=== PATIENT | female | born 1975 | race Caucasian/White ===

== ENCOUNTER 2018-04-15 17:33 | Emergency (ER) | payer SELFPAY ==
[2018-04-15] MEDS ORDERED: GARL1TAB9 PO (17:42)
[2018-04-15] MEDS ORDERED: IBUP-1671 PO (17:42)
--- NOTE | 2018-04-15 17:42 | ER Report ---
History and Physical Time Seen By MD: 17:43 Hx. of Stated Complaint: PT REPORTS HITTING RIGHT LEG WITH SLUDGE HAMMER 1 WEEK AGO, HERE TONIGHT D/T STILL HAVING PAIN/BRUSING. PT HAS HISTORY OF BLOOD CLOTS. HPI/ROS CHIEF COMPLAINT: Pain to right lower extremity HISTORY OF PRESENT ILLNESS: 42-year-old female patient presents to emergency room with complaint of pain to the right lower extremity. 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 She states that she was using a sledgehammer to break ice off the trailer. She states that the sledgehammer slipped out of her hand and hit her in the leg. She states that since then she's been having pain there. She states able to walk, but has noticed some redness and swelling to the medial aspect of the proximal lower leg. Patient states she is not taking any medicine for this. She denies any fevers or chills. She states that she does have a history of blood clots was worried about a possible DVT. She states that a few days after that she was turning her head to talk to a lift mechanic issues getting her truck. She states that she slipped off and fell backwards. She states when she did that she felt a twisting and popping in the ankle. She states she's been able to walk, but states she has had bruising and pain with that since then. REVIEW OF SYSTEMS: Respiratory: No cough, no dyspnea. Cardiovascular: No chest pain, no palpitations. Gastrointestinal: No vomiting, no abdominal pain. Musculoskeletal: As noted above Allergies: Coded Allergies: No Known Drug Allergies (Unverified , 04/15/18) Home Meds Active Scripts Cephalexin 500 Mg Tab (KEFLEX 500 MG TAB) 500 Mg Tablet, 500 MG PO Q6H, #28 TAB Prov:ANGUS ERVIN [employer] 04/15/18 Reported Medications Garlic (GARLIC) 1 Each Tablet, 1 EACH PO DAILY 04/15/18 Ibuprofen (MOTRIN IB) 200 Mg Tablet, 1-2 TAB PO Q4-6H PRN for PAIN 04/15/18 Past Medical/Surgical History Patient has a past medical history of migraines, irregular heartbeat, DVT, asthma, pneumonia, PCO S, fractures. Patient has surgical history of left knee surgery, right jaw surgery. Reviewed Nurses Notes: Yes Constitutional Vital Sign - Last 24 Hours 04/15/18 04/15/18 04/15/18 04/15/18 17:37 17:45 18:00 18:15 Temp 98.1 Pulse 94 87 89 83 Resp 16 B/P (MAP) 163/120 Pulse Ox 95 97 95 96 O2 Delivery Room Air 04/15/18 04/15/18 04/15/18 18:30 18:45 20:33 Pulse 81 85 Resp 15 16 B/P (MAP) 155/118 (130) 158/95 (116) Pulse Ox 95 96 O2 Delivery Room Air Room Air Physical Exam General Appearance: The patient is alert, has no immediate need for airway protection and no current signs of toxicity. Respiratory: Chest is non tender, lungs are clear to auscultation. Cardiac: regular rate and rhythm Gastrointestinal: Abdomen is soft and non tender, no masses, bowel sounds normal. Musculoskeletal: Neck: Neck is supple and non tender. Extremities have full range of motion and are non tender. Patient does have some redness, erythema noted to the right lower extremity, is slightly tender to touch. Patient does have bruising to the right ankle. She has no pain to palpation, she is able to dorsiflex and plantarflex was without any problems. She does have worsening pain with pronation. Skin: No rashes or lesions. DIFFERENTIAL DIAGNOSIS: After history and physical exam differential diagnosis was considered for fracture, contusion, cellulitis, DVT. Medical Decision Making Data Points Result Diagram: 04/15/18 1812 04/15/18 1812 Laboratory Hematology Test 04/15/18 18:12 Red Blood Count 5.49 M/uL (4.17-5.56) Mean Corpuscular Volume 84.6 fL (80.0-96.0) Mean Corpuscular Hemoglobin 28.1 pg (26.0-33.0) Mean Corpuscular Hemoglobin Concent 33.2 g/dL (32.0-36.0) Red Cell Distribution Width 14.1 % (11.5-14.5) Mean Platelet Volume 8.5 fL (7.2-11.1) Neutrophils (%) (Auto) 57.8 % (39.4-72.5) Lymphocytes (%) (Auto) 34.1 % (17.6-49.6) Monocytes (%) (Auto) 6.8 % (4.1-12.4) Eosinophils (%) (Auto) 0.9 % (0.4-6.7) Basophils (%) (Auto) 0.4 % (0.3-1.4) Nucleated RBC Relative Count (auto) 0.2 /100WBC Neutrophils # (Auto) 4.2 K/uL (2.0-7.4) Lymphocytes # (Auto) 2.5 K/uL (1.3-3.6) Monocytes # (Auto) 0.5 K/uL (0.3-1.0) Eosinophils # (Auto) 0.1 K/uL (0.0-0.5) Basophils # (Auto) 0.0 K/uL (0.0-0.1) Nucleated RBC Absolute Count (auto) 0.01 K/uL Prothrombin Time 12.4 seconds (12.0-14.4) Prothromb Time International Ratio 0.92 Activated Partial Thromboplast Time 27 seconds (23-35) Sodium Level 140 mmol/L (137-145) Potassium Level 3.6 mmol/L (3.5-5.0) Chloride Level 104 mmol/L (98-107) Carbon Dioxide Level 28 mmol/L (22-31) Blood Urea Nitrogen 15 mg/dl (7-18) Creatinine 0.80 mg/dl (0.52-1.04) Glomerular Filtration Rate Calc > 60.0 Random Glucose 107 mg/dl (75-110) Calcium Level 8.9 mg/dl (8.4-10.2) Total Bilirubin 0.5 mg/dl (0.2-1.3) Aspartate Amino Transf (AST/SGOT) 17 U/L (0-35) Alanine Aminotransferase (ALT/SGPT) 29 U/L (0-56) Alkaline Phosphatase 42 U/L (0-126) Total Protein 7.3 g/dl (6.3-8.2) Albumin 3.9 g/dl (3.5-5.0) Chemistry Test 04/15/18 18:12 White Blood Count 7.3 k/uL (4.5-11.0) Red Blood Count 5.49 M/uL (4.17-5.56) Hemoglobin 15.4 g/dL (12.0-16.0) Hematocrit 46.5 % (34.0-47.0) Mean Corpuscular Volume 84.6 fL (80.0-96.0) Mean Corpuscular Hemoglobin 28.1 pg (26.0-33.0) Mean Corpuscular Hemoglobin Concent 33.2 g/dL (32.0-36.0) Red Cell Distribution Width 14.1 % (11.5-14.5) Platelet Count 266 K/uL (150-450) Mean Platelet Volume 8.5 fL (7.2-11.1) Neutrophils (%) (Auto) 57.8 % (39.4-72.5) Lymphocytes (%) (Auto) 34.1 % (17.6-49.6) Monocytes (%) (Auto) 6.8 % (4.1-12.4) Eosinophils (%) (Auto) 0.9 % (0.4-6.7) Basophils (%) (Auto) 0.4 % (0.3-1.4) Nucleated RBC Relative Count (auto) 0.2 /100WBC Neutrophils # (Auto) 4.2 K/uL (2.0-7.4) Lymphocytes # (Auto) 2.5 K/uL (1.3-3.6) Monocytes # (Auto) 0.5 K/uL (0.3-1.0) Eosinophils # (Auto) 0.1 K/uL (0.0-0.5) Basophils # (Auto) 0.0 K/uL (0.0-0.1) Nucleated RBC Absolute Count (auto) 0.01 K/uL Prothrombin Time 12.4 seconds (12.0-14.4) Prothromb Time International Ratio 0.92 Activated Partial Thromboplast Time 27 seconds (23-35) Glomerular Filtration Rate Calc > 60.0 Calcium Level 8.9 mg/dl (8.4-10.2) Total Bilirubin 0.5 mg/dl (0.2-1.3) Aspartate Amino Transf (AST/SGOT) 17 U/L (0-35) Alanine Aminotransferase (ALT/SGPT) 29 U/L (0-56) Alkaline Phosphatase 42 U/L (0-126) Total Protein 7.3 g/dl (6.3-8.2) Albumin 3.9 g/dl (3.5-5.0) Coagulation Test 04/15/18 18:12 Prothrombin Time 12.4 seconds Prothromb Time International Ratio 0.92 Activated Partial Thromboplast Time 27 seconds EKG/Imaging Imaging 3 views right ankle INDICATION: Right ankle pain after hit with sledgehammer. COMPARISON: None Available FINDINGS: 3 views of the right ankle. No fracture or dislocation. No bony lesions or periosteal abnormality. No appreciable degenerative changes. Soft tissue swelling without radiopaque foreign body. IMPRESSION: 1. No acute osseous abnormality of the right ankle Report Dictated By: Donavan Figueroa at 04/15/2018 7:07 PM Report E-Signed By: Donavan Figueroa at 04/15/2018 7:09 PM TIBIA FIBULA RIGHT Indication: Right lower leg pain after hit with sledgehammer. Comparison: None available Findings: Two views right tibia and fibula show no acute fracture or dislocation. No periosteal abnormality or bony lesion. Mild degenerative change seen knee including mild disc stem, osteophytes and tibial eminence spurring. Soft tissues show mild edema. No evidence of radiopaque foreign body. IMPRESSION: No acute osseous abnormality right tibia/fibula. Mild degenerative changes of the knee. Report Dictated By: Donavan Figueroa at 04/15/2018 7:09 PM Report E-Signed By: Donavan Figueroa at 04/15/2018 7:10 PM EXAMINATION: Right LOWER EXTREMITY VENOUS DOPPLER ULTRASOUND DATE: 04/15/2018 7:59 PM CLINICAL INFORMATION: Evaluate for DVT. REASON FOR STUDY: swelling and heat TECHNIQUE: Grayscale, color Doppler, and spectral Doppler ultrasound was performed of the lower extremity veins to evaluate for deep venous thrombosis. COMPARISON: None relevant. FINDINGS: The right common femoral, femoral, and popliteal veins are compressible with normal flow on color Doppler imaging. There is also normal Doppler flow of the profunda femoris and greater saphenous veins at the confluence with the common femoral vein. The right posterior tibial and peroneal veins demonstrate normal flow IMPRESSION: No evidence of deep venous thrombosis in the right lower extremity veins. Report Dictated By: Andre Mar MD at 04/15/2018 7:59 PM Report E-Signed By: Andre Mar MD at 04/15/2018 8:01 PM ED Course/Re-evaluation ED Course Patient was admitted to exam room, history and physical were obtained. Differential diagnoses were considered. On examination lungs are clear, heart was regular, patient did have some erythema to the right lower leg. A CBC, CMP, PT, PTT were done. Lab results were negative. Ultrasound was done of the right lower extremity which was negative for DVT. X-ray of the right tib-fib fib, right foot were done. Those are negative for fractures. I discussed the findings with the patient. I then did an ultrasound of the right lower extremity looking at the area of erythema. There does appear to be a fluid collection. I discussed opening what appears to be an abscess. Patient refused getting the area drained. We will go ahead and place her on antibiotics. She is to follow-up with her primary care provider early next week. If there is no improvement in 72 hours of like her to return to the emergency room for further evaluation, we may drain the abscess at that time. However if there is improvement we will continue with antibiotics. Patient verbalized understanding and agreement with plan. Decision to Disposition Date: Apr 15, 2018 Decision to Disposition Time: 20:31 Depart Departure Latest Vital Signs Vital Signs Date Time Temp Pulse Resp B/P (MAP) Pulse Ox O2 Delivery O2 Flow Rate FiO2 04/15/18 20:33 85 16 158/95 (116) Room Air 04/15/18 18:45 96 04/15/18 17:37 98.1 Impression: Primary Impression: Cellulitis of right lower extremity Condition: Improved Disposition: HOME OR SELF-CARE New Scripts Cephalexin 500 Mg Tab (KEFLEX 500 MG TAB) 500 Mg Tablet 500 MG PO Q6H, #28 TAB Prov: ANGUS ERVIN 04/15/18 Patient Instructions: Cellulitis (ED) Additional Instructions: Limit activity by pain. Elevate foot when not active. Take the antibiotics if condition worsens. Follow up with your primary care provider in the next week. Give the antibiotics an opportunity to work, 72 hours, if there is no improvement after 72 hours return to the ER. If condition worsens return to the ER. You may take Tylenol or Ibuprofen as needed for pain. ANGUS ERVIN Apr 15, 2018 17:42
[2018-04-15 18:26] LABS: PLATELET COUNT, AUTOMATED 266 K/uL (150-450)
[2018-04-15 18:28] LABS: INR 0.92
--- NOTE | 2018-04-15 19:12 | RADIOLOGY IMAGING REPORT ---
FACILITY: [facility] PATIENT NAME: Devika Fox : 1975 MR: [id number] V: [id number] EXAM DATE: ORDERING PHYSICIAN: ANGUS ERVIN TECHNOLOGIST: Location: [facility] Patient: Devika Fox : 1975 Visit/Account:[id number] Date of Sevice: 04/15/2018 3 views right ankle INDICATION: Right ankle pain after hit with sledgehammer. COMPARISON: None Available FINDINGS: 3 views of the right ankle. No fracture or dislocation. No bony lesions or periosteal abnormality. No appreciable degenerative changes. Soft tissue swelling without radiopaque foreign body. IMPRESSION: 1. No acute osseous abnormality of the right ankle Report Dictated By: Donavan Figueroa at 04/15/2018 7:07 PM Report E-Signed By: Donavan Figueroa at 04/15/2018 7:09 PM WSN:[id number]
--- NOTE | 2018-04-15 19:14 | RADIOLOGY IMAGING REPORT ---
FACILITY: [facility] PATIENT NAME: Devika Fox : 1975 MR: [id number] V: [id number] EXAM DATE: ORDERING PHYSICIAN: ANGUS ERVIN TECHNOLOGIST: Location: [facility] [place] Patient: Devika Fox : 1975 Visit/Account:[id number] Date of Sevice: 04/15/2018 TIBIA FIBULA RIGHT Indication: Right lower leg pain after hit with sledgehammer. Comparison: None available Findings: Two views right tibia and fibula show no acute fracture or dislocation. No periosteal abnormality or bony lesion. Mild degenerative change seen knee including mild disc stem, osteophytes and tibial tika ence spurring. Soft tissues show mild edema. No evidence of radiopaque foreign body. IMPRESSION: No acute osseous abnormality right tibia/fibula. Mild degenerative changes of the knee. Report Dictated By: Donavan Figueroa at 04/15/2018 7:09 PM Report E-Signed By: Donavan Figueroa at 04/15/2018 7:10 PM WSN:[id number]
--- NOTE | 2018-04-15 20:04 | RADIOLOGY IMAGING REPORT ---
[place] [facility] [place] NAME: Devika Fox : 1975 MR: [id number] V: [id number] EXAM DATE: ORDERING PHYSICIAN: ANGUS ERVIN TECHNOLOGIST: [place] [facility] [place] Devika Fox : 1975 Visit/Account:[id number] Date of Sevice: 04/15/2018 EXAMINATION: Right LOWER EXTREMITY VENOUS DOPPLER ULTRASOUND DATE: 04/15/2018 7:59 PM CLINICAL INFORMATION: Evaluate for DVT. REASON FOR STUDY: swelling and heat TECHNIQUE: Grayscale, color Doppler, and spectral Doppler ultrasound was performed of the lower extre mity veins to evaluate for deep venous thrombosis. COMPARISON: None relevant. FINDINGS: The right common femoral, femoral, and popliteal veins are compressible with normal flow on color Dop pler imaging. There is also normal Doppler flow of the profunda femoris and greater saphenous veins a t the confluence with the common femoral vein. The right posterior tibial and peroneal veins demonstrate normal flow IMPRESSION: No evidence of deep venous thrombosis in the right lower extremity veins. Report Dictated By: Andre Mar MD at 04/15/2018 7:59 PM Report E-Signed By: Andre Mar MD at 04/15/2018 8:01 PM WSN:[id number]
[2018-04-15] MEDS ORDERED: CEPH500T7 PO (20:28)
[2018-04-15 20:33] VITALS: BP 158/95
== END 2018-04-15 20:37 | disposition home or self-care (01) ==
LOC: ER 18:19
DX: L03.115 Cellulitis of right lower limb (principal)
CPT/HCPCS: 36415; 82040; 82247; 82310; 82374; 82435; 82565; 82947; 84075; 84132; 84155; 84295; 84450; 84460; 84520; 85025; 85610; 85730; 99284